=== PATIENT | female | born 2000 | race Caucasian/White ===

== ENCOUNTER 2020-03-16 16:18 | Emergency (ER) | payer OTHER ==
[~2020-03-16] VITALS: Ht 157.5 cm; Wt 56.3 kg
[2020-03-16 16:18] VITALS: BP 114/76
[2020-03-16] MEDS ORDERED: AMOX500T PO (16:38)
--- NOTE | 2020-03-16 16:40 | PHYS DOC ---
General Adult EDM: Chief Complaint: DENTAL PROBLEM HPI: HPI: The history was obtained from the patient. Patient is a 19-year-old female with no reported PMH who presents with a chief complaint of right upper dental pain. Patient states she noticed some very mild right upper molar dental pain beginning yesterday. States she woke up this morning the pain seemed more severe. States it first in the morning of somewhat painful to swallow. States at first it was somewhat painful to open her mouth. States that the day the symptoms have improved significantly. She has not tried any medicine for help. She denies any fevers. Denies any drainage of the mouth. She denies any swelling. Denies any recent dental procedures or trauma. She denies any change to her voice. She states that she mainly presented because her surgeon and encouraged her to. She does have a dentist that she can follow-up closely with this week. Denies having wisdom teeth pulled over. Unsure if she has experienced any sensitivities to hot or cold foods as she has not eaten any of that today. No other complaints. Review of Systems: Review of Systems: Constitutional: Denies fever or chills Eyes: Denies change in visual acuity HENT: Positive for dental pain Respiratory: Denies cough or shortness of breath Cardiovascular: Denies chest pain or edema GI: Denies abdominal pain, nausea, vomiting, bloody stools or diarrhea : Denies dysuria Musculoskeletal: Denies back pain or joint pain Integument: Denies rash Neurologic: Denies headache, focal weakness or sensory changes Endocrine: Denies polyuria or polydipsia Lymphatic: Denies swollen glands Psychiatric: Denies depression or anxiety Heart Score: Risk Factors: Risk Factors: DM, Current or recent (<one month) smoker, HTN, HLP, family history of CAD, obesity. Risk Scores: Score 0 - 3: 2.5% MACE over next 6 weeks - Discharge Home Score 4 - 6: 20.3% MACE over next 6 weeks - Admit for Clinical Observation Score 7 - 10: 72.7% MACE over next 6 weeks - Early Invasive Strategies Allergies: Allergies: Allergies Coded Allergies Type Severity Reaction Last Updated Verified No Known Drug Allergies 03/16/20 No Physical Exam: PE: Constitutional: Well developed, well nourished, no acute distress, non-toxic appearance. [] HENT: Normocephalic, atraumatic, bilateral external ears normal, oropharynx moist, no oral exudates, nose normal. Good dentition. No caries visualized. No apical abscess visualized. No trismus. No dysphonia. No limitations in neck range of motion. No cervical adenopathy. Eyes: PERRLA, EOMI, conjunctiva normal, no discharge. [] Neck: Normal range of motion, no tenderness, supple, no stridor. [] Cardiovascular:Heart rate regular rhythm, no murmur [] Lungs & Thorax: Bilateral breath sounds clear to auscultation [] Abdomen: Bowel sounds normal, soft, no tenderness, no masses, no pulsatile masses. [] Skin: Warm, dry, no erythema, no rash. [] Back: No tenderness, no CVA tenderness. [] Extremities: No tenderness, no cyanosis, no clubbing, ROM intact, no edema. [] Neurologic: Alert and oriented X 3, normal motor function, normal sensory function, no focal deficits noted. [] Psychologic: Affect normal, judgement normal, mood normal. [] EKG: EKG: [] Radiology/Procedures: Radiology/Procedures: [] Course & Med Decision Making: Course & Med Decision Making pertinent Labs and Imaging studies reviewed. (See chart for details) Patient is a well-appearing 19-year-old female presents with chief complaint of dental pain x1 day. Vital signs normal. Exam reassuring. No concern for deep space infection. On my examination her dentition appears normal with no dental caries or abscess. I do feel is reasonable to defer immediate antibiosis given her well exam and well appearance. She will be given a prescription of am oxicillin. She was instructed to fill it in the next 2 days should her symptoms not improve or worsen. She does have a dentist she can follow-up with closely. Return precautions discussed and understood. She is agreeable to this plan. Stable for discharge home. Jesus Disclaimer: Jesus Disclaimer: This electronic medical record was generated, in whole or in part, using a voice recognition dictation system. Departure Departure: Impression: Primary Impression: Pain, dental Disposition: 01 HOME/RESIDENCE PRIOR TO ADM Condition: STABLE Referrals: PCP,NO (PCP) Patient Instructions: Dental Pain Additional Instructions: Please follow-up with a dentist in the next week. Please follow-up with your primary care physician in the next week as well. Please fill antibiotic prescription in the next 1 to 2 days should your symptoms worsen or you develop a fever. Scripts Amoxicillin (AMOXICILLIN) 500 Mg Tablet 500 MG PO BID for dental pain for 7 Days, #14 TAB Prov: CELESTE DUNHAM DO 03/16/20 Justification of Admission: Justification of Admission: Justification of Admission Dx: N/A CELESTE DUNHAM DO Mar 16, 2020 16:40
== END 2020-03-16 16:45 | disposition home or self-care (01) ==
LOC: ER 16:18
DX: K08.89 Other specified disorders of teeth and supporting structures (principal); R13.10 Dysphagia, unspecified
CPT/HCPCS: 99283